=== PATIENT | female | born 1985 | race Native Hawaiian/Other Pacific Islander ===

== ENCOUNTER 2020-04-27 11:24 | Emergency (ER) | payer OTHER ==
[~2020-04-27] VITALS: Ht 165.1 cm; Wt 72.6 kg
[2020-04-27 11:49] VITALS: TEMP 99.6
[2020-04-27 12:28] LABS: PLATELET COUNT 333 K/uL (152-353)
[2020-04-27 12:31] LABS: POTASSIUM 4.4 mmol/L (3.6-5.2)
[2020-04-27 13:32] VITALS: BP 124/82
== END 2020-04-27 13:28 | disposition home or self-care (01) ==
LOC: ED 11:24
PROVIDERS: Emergency Medicine Emergency Medical Services
DX: S39.012A Strain of muscle, fascia and tendon of lower back, initial encounter (principal); W18.39XA Other fall on same level, initial encounter; Y92.89 Other specified places as the place of occurrence of the external cause; H54.8 Legal blindness, as defined in USA
CPT/HCPCS: 80053; 81000; 85027; 96360; 96372; 96375; 99284; J1170; J1885